=== PATIENT | female | born 1935 | race Caucasian/White ===

== ENCOUNTER 2020-10-22 15:35 | Emergency (ER) | payer OTHER ==
[~2020-10-22] VITALS: Ht 162.6 cm; Wt 72.7 kg
[2020-10-22] MEDS ORDERED: MELO-106 PO (15:46)
[2020-10-22] MEDS ORDERED: AMLO-257 PO (15:46)
[2020-10-22] MEDS ORDERED: MULT-264 PO (15:46)
[2020-10-22] MEDS ORDERED: DICL25 PO (15:46)
[2020-10-22] MEDS ORDERED: DOCU-202 PO (15:46)
[2020-10-22] MEDS ORDERED: ACET-2247 PO (15:46)
[2020-10-22 18:44] VITALS: BP 154/64
== END 2020-10-22 23:11 | disposition home or self-care (01) ==
LOC: EMS 15:42
DX: M97.01XA Periprosthetic fracture around internal prosthetic right hip joint, initial encounter (principal); I10 Essential (primary) hypertension; Z79.899 Other long term (current) drug therapy
CPT/HCPCS: 73502; 99283